=== PATIENT | female | born 1975 | race Caucasian/White ===

== ENCOUNTER → 2023-06-05 18:52 | Outpatient (REF) | payer OTHER, SELFPAY | LOC: RAD 18:52 | PROVIDERS: ATTENDING PHYSICIAN Nurse Practitioner; FAMILY PHYSICIAN Family Medicine | DX: M25.511 Pain in right shoulder (principal) | CPT/HCPCS: 73030 ==

== ENCOUNTER 2023-08-11 09:00 | Outpatient (RCR) | payer OTHER, SELFPAY | END 2023-08-11 23:59 | disposition home or self-care (01) | LOC: RPT 09:00 | PROVIDERS: ATTENDING PHYSICIAN Nurse Practitioner; FAMILY PHYSICIAN Family Medicine | DX: M25.511 Pain in right shoulder (principal); Z73.6 Limitation of activities due to disability | CPT/HCPCS: 97010; 97110; 97140; 97162; 97535 ==

== ENCOUNTER → 2023-11-02 14:13 | Outpatient (REF) | payer BC, SELFPAY | LOC: RAD 14:13 | PROVIDERS: ATTENDING PHYSICIAN Specialist; FAMILY PHYSICIAN Family Medicine | DX: N20.0 Calculus of kidney (principal) | CPT/HCPCS: 76770 ==

== ENCOUNTER 2024-04-25 15:02 | Emergency (ER) | payer BC, SELFPAY ==
[2024-04-25 15:44] VITALS: BP 117/78
--- NOTE | 2024-04-25 15:52 | ED.GENMED ---
ED Provider Triage
<DENEEN Davis - Last Filed: 04/25/24 16:01>
-
Patient seen by provider in Triage?: Seen in Triage
Attestation: A medical screening examination has been initiated by a qualified medical provider. Based on the assessment performed at this time, it has been determined that an emergent medical condition may exist and the patient has been informed
that further medical evaluation and possible additional diagnostic testing may be needed.
HPI:
49 yr old female c /o of right flank pain, history of kidney stones (lithotripsy and stone extraction). Pt has had intermittent pain since last week in March but now w/ sharp pain right flank. no vomiting + nausea, + chills. no burning
GENERAL: Alert , in no apparent distress
EYE: No visual abnormalities.
NECK: Trachea midline
ENT: No visible abnormalities.
LUNGS: No acute respiratory distress
NEUROLOGICAL: Alert and oriented
SKIN: Skin intact. No visible changes.
MUSCULOSKELETAL: Moving extremities normally
PSYCH: Normal and appropriate interaction.
This is a medical evaluation conducted in person to initiate diagnostic evaluation and provide initial therapeutics. Please see further documentation by the treating clinician.
History of Present Illness
<DENEEN Davis - Last Filed: 04/25/24 16:01>
General
Chief Complaint: Flank Pain
Time Seen by Provider: 04/25/24 18:05
<DENEEN Penaloza - Last Filed: 04/25/24 20:23>
General
Source: patient
Exam Limitations: none
History of Present Illness
History of Present Illness:
This is a 49 year old female that comes in with c/o right flank pain. States that she started with right flank pain around 12 noon today. State that the pain comes around to the right abd and into the groin. States that she had chills and was
nauseated and has a headache. Denies any fever, chest pain, SOB, vomiting, diarrhea, dizziness, urinary burning.
Past History
<DENEEN Penaloza - Last Filed: 04/25/24 20:23>
Past History
ED Past Medical History: Other (Renal calculus, ); Negative Asthma, HTN, Hypercholesterolemia or NIDDM
ED Past Surgical History: (X 3), Urological (Lithotripsy with stent) and Other (Breast augmentation)
Social History
Tobacco: Former smoker
Alcohol: None
Personal:
Living: with family
Review of Systems
<DENEEN Penaloza - Last Filed: 04/25/24 20:23>
Review of Systems
All Other Systems: ROS reviewed and negative except as documented in HPI and ROS
Constitutional: Reports chills; Denies fever
EENT: Reports no symptoms
Respiratory: Reports no symptoms; Denies cough or trouble breathing
Cardiac: Reports no symptoms; Denies chest pain
ABD/GI: Reports abdominal pain and nausea; Denies vomiting or diarrhea
: Reports flank pain (Right sided); Denies dysuria, frequency or urgency
Musculoskeletal: Reports no symptoms
Skin: Reports no symptoms
Neurological: Reports headache; Denies dizzy
Psychiatric: Reports no symptoms
Phy Exam
<DENEEN Penaloza - Last Filed: 04/25/24 20:23>
General Physical Exam
General Presentation: no apparent distress
General age: appears stated age
General Skin: warm and dry
General Habitus: normal
General Mental: alert
General Hydration: appears well hydrated
ENT Exam
ENT Exam: TM's normal, pharynx normal and neck supple
Eye Exam
Eye Exam: EOMI
Cardiovascular Exam
Cardiovascular Exam: regular rate/rhythm, no edema, no murmur and normal peripheral pulses
Pulmonary Exam
Pulmonary Exam: lungs clear, no respiratory distress, no rales, chest non tender, no crackles, no rhonchi, no wheezing and no cough
Gastrointestinal Exam
Gastrointestinal Exam: normal bowel sounds, soft, no organomegaly, no pulsatile mass, non distended, cva tenderness (Right sided) and tender (Right sided abd tenderness with palpation)
Musculoskeletal Exam
Musculoskeletal Exam: full ROM and no edema
Skin Exam
Skin Exam: normal color, warm/dry, no rash and no petechia
Psychiatric Exam
Psychiatric Exam: normal mood/affect
Course
<DENEEN Davis - Last Filed: 04/25/24 16:01>
Orders/Labs/Results
Orders:
Orders
04/25/24 15:54
Test Result ONCE
04/25/24 15:59
Complete Blood Count/With Diff Urgent
Comprehensive Metabolic Panel Urgent
HCG, Serum Qualitative Screen Urgent
Urinalysis Reflex To Culture Urgent
Date Specimen was Collected: 04/25/24
Time Specimen was Collected: 15:56
Urine Microscopic Reflex Cult Urgent
Urine Culture Urgent
LAUREEN Source: U
Specimen Description:
Date Specimen was Collected: 04/25/24
Time Specimen was Collected: 15:56
04/25/24 16:01
CT Abd/pel Without Iv Or Oral Urgent
Comment:
Reason For Exam: right flank pain
04/25/24 18:32
0.9% Sodium Chloride 500 ml [Nss] 500 ml IV BOLUS
Acetaminophen [Tylenol] 1,000 mg PO NOW STA
Ketorolac [Toradol] 30 mg IV NOW STA
04/25/24 18:35
Ondansetron Injectable [Zofran] 4 mg IV NOW STA
Abnormal Lab Results
04/25/24
15:59
WBC 12.8 H 10^3/uL
(4.8-10.8)
Abs Immat Gran (auto) 0.1 H 10^3/uL
(0-0.05)
Absolute Neuts (auto) 9.6 H 10^3/uL
(1.4-6.5)
Lymphocytes % 19.3 L %
(20.5-51.1)
BUN 19 H mg/dl
(7-17)
Creatinine 0.5 L mg/dL
(0.6-1.0)
Glucose 107 H mg/dl
(70-99)
Ur Occult Blood Reflex 1+ A
(Negative)
Leukocyte Esterase Rfl 1+ A
(Negative)
Urine RBC 3-6 A /HPF
(0-2)
Urine Bacteria (Reflex) Few A
(Negative)
04/25/24 15:59
04/25/24 15:59
Vital Signs
Initial and Last Documented VS:
Initial Vital Signs
Temp Pulse Resp BP Pulse Ox
98.0 F 95 16 117/78 97
04/25/24 15:44 04/25/24 15:44 04/25/24 15:44 04/25/24 15:44 04/25/24 15:44
Last Documented Vital Signs
Temp Pulse Resp BP Pulse Ox
98.0 F 95 16 117/78 97
04/25/24 15:44 04/25/24 15:44 04/25/24 15:44 04/25/24 15:44 04/25/24 15:44
<DENEEN Penaloza - Last Filed: 04/25/24 20:23>
Orders/Labs/Results
Orders:
Orders
04/25/24 15:54
Test Result ONCE
04/25/24 15:59
Complete Blood Count/With Diff Urgent
Comprehensive Metabolic Panel Urgent
HCG, Serum Qualitative Screen Urgent
Urinalysis Reflex To Culture Urgent
Date Specimen was Collected: 04/25/24
Time Specimen was Collected: 15:56
Urine Microscopic Reflex Cult Urgent
Urine Culture Urgent
LAUREEN Source: U
Specimen Description:
Date Specimen was Collected: 04/25/24
Time Specimen was Collected: 15:56
04/25/24 16:01
CT Abd/pel Without Iv Or Oral Urgent
Comment:
Reason For Exam: right flank pain
04/25/24 18:32
0.9% Sodium Chloride 500 ml [Nss] 500 ml IV BOLUS
Acetaminophen [Tylenol] 1,000 mg PO NOW STA
Ketorolac [Toradol] 30 mg IV NOW STA
04/25/24 18:35
Ondansetron Injectable [Zofran] 4 mg IV NOW STA
Abnormal Lab Results
04/25/24
15:59
WBC 12.8 H 10^3/uL
(4.8-10.8)
Abs Immat Gran (auto) 0.1 H 10^3/uL
(0-0.05)
Absolute Neuts (auto) 9.6 H 10^3/uL
(1.4-6.5)
Lymphocytes % 19.3 L %
(20.5-51.1)
BUN 19 H mg/dl
(7-17)
Creatinine 0.5 L mg/dL
(0.6-1.0)
Glucose 107 H mg/dl
(70-99)
Ur Occult Blood Reflex 1+ A
(Negative)
Leukocyte Esterase Rfl 1+ A
(Negative)
Urine RBC 3-6 A /HPF
(0-2)
Urine Bacteria (Reflex) Few A
(Negative)
04/25/24 15:59
04/25/24 15:59
Leukocytosis, Slight dehydration. Glucose nonfasting. Urine negative for infection. Positive for blood. HCG negative.
Vital Signs
Initial and Last Documented VS:
Initial Vital Signs
Temp Pulse Resp BP Pulse Ox
98.0 F 95 16 117/78 97
04/25/24 15:44 04/25/24 15:44 04/25/24 15:44 04/25/24 15:44 04/25/24 15:44
Last Documented Vital Signs
Temp Pulse Resp BP Pulse Ox
98.0 F 95 16 117/78 97
04/25/24 15:44 04/25/24 15:44 04/25/24 15:44 04/25/24 15:44 04/25/24 15:44
<DENEEN Penaloza - Last Filed: 04/25/24 20:23>
MDM/Problems Addressed
Differential Diagnosis Includes:
Renal calculus, UTI
MDM/Problems Addressed:
This is a 49 year old female that comes in with c/o right flank pain. States that this started about 12 noon.
Will check labs and get CT scan. Will give IV fluids and mediate for pain.
Back into see patient. Reviewed CT scan. Will have patient follow up with Dr. Rodriguez for further evaluation. Will recheck after pain medication.
Patient states that she is feeling better will discharge home.
Chronic conditions affecting care:
Renal calculus
Acute Exacerbation and/or Progression of Chronic Illness:
Renal calculus
<DENEEN Penaloza - Last Filed: 04/25/24 20:23>
*Radiology
Radiology exam reviewed: radiology read reviewed (CT scan-There is mild left and moderate right hydronephrosis and right hydroureter down to the level of the ureterovesical junction, without evidence of obstructing calculus in this region suggesting
that this dilatation may be on the basis of recently passed calculus or noncalcific obstructing ) and other (CT cont- noncalcific obstructing entity such as urothelial carcinoma, blood clot or sloughed papilla. 2mm nonobstructing calculus in the
lower pole of the left kidney. )
*Pulse Oximetry
Patient hypoxic: no
*EKG
Interpreted by ED Provider?: NA
Rate: EKG- N/A
*Showroom Manager Interpretation
Rate: Showroom Manager- N/A
*Critical Care Note
Total Time (30-74mins, 75-104mins- exclusive of procedures): Not Applicable
ED Attending Note
<DENEEN Davis - Last Filed: 04/25/24 16:01>
-
Portions of this chart may have been created with voice recognition software.� Occasional wrong word or��sound alike� substitutions may have occurred due to the inherent limitations of voice recognition software.
Discharge Plan
Departure
Patient Disposition: Home (Routine Discharge)
Date of Disposition: 04/25/24
Time of Disposition: 20:10
Patient with high blood pressure during this ER visit?: No
Condition: Good
Covid-19: Not Applicable
Discharge Problem:
Passed renal calculus
Instructions: Renal Colic (DC)
Prescriptions:
No Action
No Current Medications
0
Referrals:
Honey Weldon MD [Family Provider] -
Marciano Rodriguez MD [Active] - Call in 1-3 days for appt
Activity Restrictions/Additional Instructions:
As discussed, your CT shows that you may have had a stone on the right that you passed. There is a stone in the left kidney. Please increase your water intake to 8-8oz glasses daily. Follow up with Your [facility] for further evaluation. You may use
Ibuprofen 600mg every 6 hours for pain and Tylenol 1000mg every 6 hours. IF YOU HAVE FEVER, INCREASED OR CHANGING PAIN, OR YOU HAVE ANY OTHER CONCERNS PLEASE RETURN TO THE EMERGENCY ROOM
Interventions
Interventions:
*Risk Screen - Suicide Last Done: 04/25/24 19:02
*General Assessment Last Done: 04/25/24 19:02
*Neglect/Abuse Screening Last Done: 04/25/24 19:02
ED- Fall Risk Assessment Last Done: 04/25/24 19:02
*ED COVID-19 Vaccine History Last Done: 04/25/24 19:02
AY-Jgylon-Vxmhbaakwt Assessment Last Done: 04/25/24 19:02
ED-Female Genitourinary Assessment Last Done: 04/25/24 19:02
Discharge Date and Time
Print Language: LATVIAN
[2024-04-25 16:24] LABS: % Basophils 0.5 % (0-2); % Eosinophils 0.8 % (0-6); % Immature Granulocytes 0.5 % (0-0.5); % Lymphocytes 19.3 % (20.5-51.1); % Monocytes 3.9 % (1.7-9.3); Absolute Basophils 0.1 10^3/uL (0-0.2); Absolute Eosinophils 0.1 10^3/uL (0-0.7); Absolute Immature Granulocytes 0.1 10^3/uL (0-0.05); Absolute Lymphocytes 2.5 10^3/uL (1.2-3.4); Absolute Monocytes 0.5 10^3/uL (0.1-0.6); Absolute Neutrophils 9.6 10^3/uL (1.4-6.5); Hemoglobin 13.9 g/dL (12.0-16.0); Mean Corp Hgb Conc. 33.1 g/dL (33.0-37.0); Mean Corpuscular Hgb 27.3 pg (27.0-31.0); Mean Corpuscular Volume 82.5 fL (81.0-99.0); Mean Platelet Volume 9.8 fL (7.4-10.4); Nucleated Red Blood Cells % 0 %; Platelet Count 269 10^3/uL (130-400); Red Blood Cell Count 5.09 10^6/uL (4.20-5.40); Red Cell Dist. Width 13.2 % (11.5-14.5); Urine Albumin Negative (Neg - Trace); Urine Bilirubin Negative (Negative); Urine Character Clear (Clear); Urine Color Yellow; Urine Glucose Negative (Negative); Urine Ketone Negative (Negative); Urine Leukocyte 1+ (Negative); Urine Nitrite Negative (Negative); Urine Occult Blood 1+ (Negative); Urine Urobilinogen Negative (Neg - 1+); White Blood Cell Count 12.8 10^3/uL (4.8-10.8)
[2024-04-25 16:35] LABS: Urine Bacteria Few (Negative)
[2024-04-25 16:39] LABS: HCG, Serum Qualitative Screen Negative
[2024-04-25 16:44] LABS: ALT (SGPT) 19 U/L (0-35); AST (SGOT) 23 U/L (14-36); Albumin 4.6 g/dl (3.5-5.0); Alkaline Phosphatase 72 U/L (38-126); Blood Urea Nitrogen 19 mg/dl (7-17); Calcium 9.9 mg/dl (8.4-10.2); Carbon Dioxide 27 mmol/L (22-30); Chloride 99 mmol/L (98-107); Glucose 107 mg/dl (70-99); Sodium 136 mmol/L (135-145); Total Bilirubin 0.5 mg/dl (0.2-1.3); Total Protein 7.3 g/dl (6.3-8.2); eGFR > 60.00
[2024-04-25] MEDS: TYLENOL 1000 MG PO (18:45)
[2024-04-25] MEDS: NSS 500 IV (18:53)
[2024-04-25] MEDS: ZOFRAN 4 MG IV (18:53)
[2024-04-25] MEDS: TORADOL 30 MG IV (18:54)
[2024-04-25 19:02] VITALS: BMI 28.2
== END 2024-04-25 20:25 | disposition home or self-care (01) ==
LOC: EMR 15:02
PROVIDERS: Nurse Practitioner; EMERGENCY PHYSICIAN Emergency Medicine; FAMILY PHYSICIAN Family Medicine
DX: N20.0 Calculus of kidney (principal); Z87.891 Personal history of nicotine dependence
CPT/HCPCS: 96374; 96375; 96361; 99284; 74176; 80053; 81003; 81015; 84703; 85025; 87086